=== PATIENT | female | born 1990 | race Caucasian/White ===

== ENCOUNTER 2019-05-24 10:53 | Emergency (ER) | payer BC ==
[~2019-05-24] VITALS: Ht 162.6 cm; Wt 54.4 kg
[2019-05-24] MEDS ORDERED: ONDA4ODT MM (12:49)
[2019-05-24] MEDS ORDERED: Norco 5-325 Ta1 EACH PO (12:49)
== END 2019-05-24 12:59 | disposition home or self-care (01) ==
LOC: ER 10:53
DX: S09.90XA Unspecified injury of head, initial encounter (principal); S50.02XA Contusion of left elbow, initial encounter; W01.0XXA Fall on same level from slipping, tripping and stumbling without subsequent striking against object, initial encounter
CPT/HCPCS: 70450; 73080; 99284-25